=== PATIENT | male | born 1985 ===

== ENCOUNTER 2019-01-18 15:13 | Emergency (ER) | payer SELFPAY ==
[~2019-01-18] VITALS: Ht 190.5 cm; Wt 80.3 kg
[2019-01-18 15:54] VITALS: BP 135/82
[2019-01-18] MEDS ORDERED: AZITHROMYCIN 500 MG TABLET PO ONE (16:00)
[2019-01-18] MEDS ORDERED: CEFTRIAXONE 250 MG IM ONE (16:00)
[2019-01-18] MEDS ORDERED: AZITHROMYCIN 500 MG TABLET ONE (16:15)
== END 2019-01-18 16:33 | disposition home or self-care (01) ==
LOC: ED 16:27
DX: N34.1 Nonspecific urethritis (principal); F17.200 Nicotine dependence, unspecified, uncomplicated
CPT/HCPCS: 87491; 87591; 96372; 99283; J0696